=== PATIENT | male | born 1950 | race Caucasian/White ===

== ENCOUNTER → 2023-05-08 | Outpatient (CLI) | payer MEDICARE | LOC: CARDREHAB 08:00 | DX: G47.19 Other hypersomnia (principal) | CPT/HCPCS: G0399 ==

== ENCOUNTER → 2023-08-29 | Outpatient (CLI) | payer MEDICARE | LOC: LAB 09:54 | DX: N39.0 Urinary tract infection, site not specified (principal); E78.2 Mixed hyperlipidemia; I10 Essential (primary) hypertension; R73.9 Hyperglycemia, unspecified ==